=== PATIENT | male | born 1955 | race Caucasian/White ===

== ENCOUNTER → 2022-05-02 | Outpatient (CLI) | payer MEDICARE | END | disposition home or self-care (01) | LOC: RAH 14:56 | PROVIDERS: ATTEND Physical Medicine & Rehabilitation | DX: M47.816 Spondylosis without myelopathy or radiculopathy, lumbar region (principal); M54.16 Radiculopathy, lumbar region | CPT/HCPCS: 72114 ==

== ENCOUNTER → 2022-05-05 | Outpatient (CLI) | payer MEDICARE | END | disposition home or self-care (01) | LOC: RAH 13:10 | PROVIDERS: ATTEND Physical Medicine & Rehabilitation | DX: M47.22 Other spondylosis with radiculopathy, cervical region (principal) | CPT/HCPCS: 72141 ==

== ENCOUNTER 2022-05-25 06:11 | Observation (INO) | payer MEDICARE ==
[2022-05-24 16:02] VITALS: BP 157/89
[2022-05-24 16:07] LABS: BASOPHILS % (AUTO) 0.4 % (0.0-5.0); EOSINOPHILS % (AUTO) 2.9 % (0.0-8.0); LYMPHOCYTES % (AUTO) 31.8 % (21.0-51.0); MEAN CORPUSCULAR HEMOGLOBIN 30.3 pg (27.0-33.0); MEAN CORPUSCULAR VOLUME 91.6 fL (79-99); MONOCYTES % (AUTO) 14.9 % (3.0-13.0); NEUTROPHILS % (AUTO) 49.6 % (40.0-77.0); PLATELET COUNT (AUTO) 266 K/uL (130-400); RED BLOOD CELL COUNT(AUTO) 5.02 MIL/uL (4.50-6.20); RED CELL DISTRIBUTION WIDTH 13.1 % (11.0-15.5); WHITE BLOOD COUNT (AUTO) 5.6 K/uL (4.8-10.8)
[2022-05-24 16:15] LABS: POTASSIUM 4.2 mmol/L (3.5-5.1)
[2022-05-25] VITALS (27 sets, daily range): BP systolic 96–167; BP diastolic 39–102
[~2022-05-25] VITALS: Ht 180.3 cm; Wt 100.9 kg
[~2022-05-25 06:11] MED LIST: ATOR40TA69 PO; LATA7.5D OU; OMEP20CA12 PO; PRAM0.5T12 PO; PREG75CA75 PO; TRAM50TA4 PO
[2022-05-25] MEDS ORDERED: CEFAZOLIN SODIUM 2 GM VIAL ONE (06:28)
[2022-05-25] MEDS ORDERED: LACTATED RINGERS 1000ML 1,000 ML IV ONE (06:29)
[2022-05-25] MEDS ORDERED: CEFAZOLIN SODIUM 2 GM VIAL IVPB PRN (08:00)
[2022-05-25] MEDS ORDERED: LIDOCAINE PF 100MG/5ML (2%) SYRINGE 5ML ONE (08:41)
[2022-05-25] MEDS ORDERED: SUCCINYLCHOLINE CHLORIDE 20 MG/ML 10 ML VIAL ONE (08:41)
[2022-05-25] MEDS ORDERED: DEXAMETHASONE SOD PHOSPHATE 10MG/ML 1ML VIAL ONE ×2 (08:42→08:44)
[2022-05-25] MEDS ORDERED: ONDANSETRON 4MG INJ ONE ×2 (08:42→15:50)
[2022-05-25] MEDS ORDERED: PROPOFOL 10 MG/ML 20ML VIAL IV ONE (08:42)
[2022-05-25] MEDS ORDERED: NEOSTIGMINE 5MG/5ML SYR IV ONE (08:42)
[2022-05-25] MEDS ORDERED: GLYCOPYRROLATE 1 MG/5 ML SYRINGE ONE (08:42)
[2022-05-25] MEDS ORDERED: MIDAZOLAM HCL 1 MG/ML 2ML VIAL ONE (08:42)
[2022-05-25] MEDS ORDERED: ROCURONIUM 10MG/1ML SYR 10 MG/ML ML ONE (08:43)
[2022-05-25] MEDS ORDERED: FENTANYL CITRATE PF 50 MCG/1 ML 2ML VIAL ONE ×4 (08:43→16:11)
[2022-05-25] MEDS ORDERED: THROMBIN-JMI 5000 UNIT/VIAL TP ONE (10:01)
[2022-05-25] MEDS ORDERED: GENTAMICIN 80 MG/NS 100 ML PB 100 ML IV ONE (11:59)
[2022-05-25] MEDS ORDERED: BUPIVACAINE/EPI/PF 0.25% 30ML VIAL IJ SCH (12:00)
[2022-05-25] MEDS ORDERED: CEFAZOLIN SODIUM 1 GM VIAL ONE (14:42)
[2022-05-25] MEDS ORDERED: ARTIFICIAL TEARS 3.5 GM OINTMENT ONE (15:04)
[2022-05-25] MEDS ORDERED: HYDROCODONE/ACETAMINOPHEN 5/325 MG TAB PO PRN (15:30)
[2022-05-25] MEDS ORDERED: MORPHINE 2 MG SYG IVP PRN (15:30)
[2022-05-25] MEDS ORDERED: PROMETHAZINE HCL 25 MG/ML 1ML AMPULE IM PRN (15:30)
[2022-05-25] MEDS ORDERED: 0.9%NACL 10ML VIAL IVP PRN (15:30)
[2022-05-25] MEDS: DEXAMETHASONE SOD PHOSPHATE 4 MG/ML 1ML VIAL IVP SCH ×2 (15:58→21:13)
[2022-05-25] MEDS ORDERED: METOCLOPRAMIDE 10 MG/2 ML VIAL ONE (16:28)
[2022-05-25] MEDS: LACTATED RINGERS 1000ML 1,000 ML IV SCH (20:24)
[2022-05-25] MEDS ORDERED: NON-FORMULARY MEDICATION 1 EACH (Omeprazole 20 MG) PO SCH (21:00)
[2022-05-25] MEDS ORDERED: LATANOPROST 2.5 ML DROPS OU SCH (21:00)
[2022-05-25] MEDS ORDERED: PRAMIPEXOLE DI-HCL 0.25 MG TABLET PO SCH (21:00)
[2022-05-25] MEDS ORDERED: PREGABALIN 75 MG CAPSULE PO SCH (21:00)
[2022-05-25] MEDS ORDERED: PANTOPRAZOLE 40 MG TAB DR PO SCH (21:00)
[2022-05-25] MEDS ORDERED: TRAMADOL HCL 50 MG TABLET PO SCH (21:00)
[2022-05-25] MEDS ORDERED: ATORVASTATIN 40 MG TABLET PO SCH (21:00)
[2022-05-25] MEDS ORDERED: PRAMIPEXOLE DI HCL 1 MG PO SCH (21:00)
[2022-05-25] MEDS ORDERED: CEFAZOLIN SODIUM 1 GM VIAL IVP SCH (23:00)
[2022-05-26] MEDS: DEXAMETHASONE SOD PHOSPHATE 4 MG/ML 1ML VIAL IVP SCH (03:03)
[2022-05-26 04:00] VITALS: BP 99/51
[2022-05-26] MEDS: LACTATED RINGERS 1000ML 1,000 ML IV SCH (04:20)
[2022-05-26 08:00] VITALS: BP 132/66
== END 2022-05-26 10:50 | disposition home or self-care (01) ==
LOC: DAHIP 06:11 → EDSTATUS 11:15 → 4BH 17:13
PROVIDERS: ADMIT Neurological Surgery; ATTEND Neurological Surgery
DX: M54.12 Radiculopathy, cervical region (principal); Z20.822 Contact with and (suspected) exposure to COVID-19; M48.02 Spinal stenosis, cervical region; M25.78 Osteophyte, vertebrae; G25.81 Restless legs syndrome; Z98.1 Arthrodesis status; Z79.899 Other long term (current) drug therapy; Z98.890 Other specified postprocedural states
CPT/HCPCS: 80048; 85025; 87426; 36415; 71045; 22551; 22552; 22845; 20930; 96374; 96375; 72020; 96376; A6260; J1100 ×6; G0378 ×20; G0379; A4663; A4344; A4649 ×3; J7120 ×2; J3010 ×4; J0690 ×3; J3490 ×3; J2710; J0330; J2001; J2250; J2704; J2405 ×2; J2765; J1580; C1776; A4215; A4223; A4222; A4221; A4600; A4510

== ENCOUNTER → 2022-06-19 | Outpatient (CLI) | payer MEDICARE | END | disposition home or self-care (01) | LOC: RAH 08:13 | PROVIDERS: ATTEND Neurological Surgery | DX: M47.812 Spondylosis without myelopathy or radiculopathy, cervical region (principal); Z98.1 Arthrodesis status | CPT/HCPCS: 72040 ==